=== PATIENT | male | born 1995 | race Two or more races ===

== ENCOUNTER 2019-02-17 10:02 | Emergency (ER) | payer MEDICAID, OTHER ==
[~2019-02-17] VITALS: Ht 177.8 cm; Wt 108.9 kg
[2019-02-17 11:01] VITALS: BP 123/53
[2019-02-17] MEDS ORDERED: KETOROLAC TROMETH 60MG/2ML VIAL IM ONE (11:30)
[2019-02-17] MEDS ORDERED: IBUPROFEN 800 MG TAB PO ONE (11:45)
== END 2019-02-17 12:11 | disposition home or self-care (01) ==
LOC: ER 10:09
DX: S83.91XA Sprain of unspecified site of right knee, initial encounter (principal); F17.210 Nicotine dependence, cigarettes, uncomplicated; X50.9XXA Other and unspecified overexertion or strenuous movements or postures, initial encounter; Y93.89 Activity, other specified; Y99.8 Other external cause status; Y92.89 Other specified places as the place of occurrence of the external cause
CPT/HCPCS: 73562

== ENCOUNTER 2024-08-24 08:21 | Emergency (ER) | payer MEDICAID ==
[~2024-08-24] VITALS: Ht 177.8 cm; Wt 132.2 kg
[2024-08-24 08:30] VITALS: BP 132/96; PULSE 96; RESP 20; O2SAT 98
== END 2024-08-24 10:31 | disposition left against medical advice (07) ==
LOC: ER 08:21
DX: R05.9 Cough, unspecified (principal); Z53.21 Procedure and treatment not carried out due to patient leaving prior to being seen by health care provider

== ENCOUNTER 2025-02-09 06:20 | Emergency (ER) | payer MEDICAID ==
[~2025-02-09] VITALS: Ht 177.8 cm; Wt 101.0 kg
[2025-02-09 07:56] VITALS: BP 133/72; PULSE 66; RESP 18; TEMP 97.7; O2SAT 98
--- NOTE | 2025-02-09 07:56 | ED.PDOC ---
Musculoskeletal HPI Comments This is a 29 year old male presenting with chief complaint of right knee concern/work release. Patient reports that he was seen limping a bit on his right leg at work, being advised by his boss to be seen in the ED for a note to be released back to work. Able to bear weight on the leg Denies trauma to the knee or recent fall Denies skin color changes around the knee Denies masses around the knee Denies popping/locking/giving out of the knee Denies fever chills night sweats nausea vomiting Denies previous surgeries to the knee nor significant injury Chief Complaint: Lower Extremity Time Seen by MD: 07:40 Primary Care Provider: NONE Reviewed Notes: Nurses Notes, Medications, Allergies Allergies: Coded Allergies: NO KNOWN ALLERGIES (Unverified , 02/17/19) Information Source: Patient Mode of Arrival: Ambulatory Location: Right Extremity Location: Knee Timing: Hours Prehospital treatment: None Severity: None Able to Move Extremity: Yes Bear Weight: Fully Pain: None Mechanism: No Injury Circumstances: Work Related DVT Risk Factors: NONE Last Tetanus: Unknown Associated signs and symptoms: None Past Medical History PAST MEDICAL HISTORY: Denies Surgical History: Denies all surgeries Family History Family History: Unknown Social History Smoker: Non-Smoker Alcohol: Denies ETOH Use Drugs: Denies Drug Use Lives In: Home Constitutional: denies: chills, diaphoresis, fatigue, fever, malaise, sweats, weakness, others EENTM: denies: blurred vision, double vision, ear bleeding, ear discharge, ear drainage, ear pain, ear ringing, eye pain, eye redness, hearing loss, mouth pain, mouth swelling, nasal discharge, nose bleeding, nose congestion, nose pain, photophobia, tearing, throat pain, throat swelling, voice changes, others Respiratory: denies: cough, hemoptysis, orthopnea, SOB at rest, shortness of b reath, SOB with excertion, stridor, wheezing, others Cardiovascular: denies: chest pain, dizzy spells, diaphoresis, Dyspnea on exertion, edema, irregular heart beat, left arm pain, lightheadedness, palpitations, PND, syncope, others Gastrointestinal: denies: abdomen distended, abdominal pain, blood streaked bowels, constipated, diarrhea, dysphagia, difficulty swallowing, hematemesis, melena, nausea, poor appetite, poor fluid intake, rectal bleeding, rectal pain, vomiting, others Genitourinary: denies: burning, dysuria, flank pain, frequency, hematuria, incontinence, penile discharge, penile sore, pain, testicle pain, testicle swelling, urgency, others Neurological: denies: dizziness, fainting, headache, left sided numbness, left sided weakness, numbness, paresthesia, pre-existing deficit, right sided numbness, right sided weakness, seizure, speech problems, tingling, tremors, weakness, others Musculoskeletal: denies: back pain, gout, joint pain, joint swelling, muscle pain, muscle stiffness, neck pain, others Integumetry: denies: bruises, change in color, change in hair/nails, dryness, laceration, lesions, lumps, rash, wounds, others Allergic/Immunocompromised: denies: Difficulty Healing, Frequent Infections, Hives, Itching, others Hematologic/Lymphatic: denies: anemia, blood clots, easy bleeding, easy bruising, swollen glands, others Endocrine: denies: excessive hunger, excessive sweating, excessive thirst, excessive urination, flushing, intolerance to cold, intolerance to heat, unexplained weight gain, unexplained weight loss, others Psychiatric: denies: anxiety, bipolar disorder, depression, hopeless, panic disorder, schizophrenia, sleepless, suicidal, others All Other Systems: Reviewed and Negative Physical Exam General Appearance: No Apparent Distress, Normal HEENT: Normal ENT Inspection, Pharynx Normal, TMs Normal Neck: Full Range of Motion, Non-Tender, Normal, Normal Inspection Respiratory: Chest Non-Tender, Lungs Clear, No Accessory Muscle Use, No Respiratory Distress, Normal Breath Sounds Cardiovascular: No Murmur, No Gallop, Regular Rate/Rhythm Breast Exam: Deferred Gastrointestinal: No Organomegaly, Non Tender, No Pulsatile Mass, Normal Bowel Sounds, Soft Genitalia: Deferred Pelvic: Deferred Rectal: Deferred Extremities: No calf tenderness, Normal capillary refill, Normal inspection, Normal range of motion, Non-tender, No pedal edema Musculoskeletal : Location: Right Extremity Location: Knee Apperance: Normal, Other (No gross abnormality to the right knee on inspection. No ecchymosis, soft tissue swelling, or open wounds. No tenderness over the anterior patella. No signs of instability to the knee. valgus varus stress test is negative. Anterior and posterior drawer test negative. No crepitus with flexion and extension of knee. 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 Was a procedure done?: No Differential Diagnosis EXT Differential Diagnosis: Sprain, Arthritis, Other X-Ray, Labs, Meds, VS Vital Signs Date Time Temp Pulse Resp B/P (MAP) Pulse Ox O2 Delivery O2 Flow Rate FiO2 02/09/25 07:56 97.7 66 18 133/72 (92) 98 97.7 02/09/25 07:56 66 02/09/25 07:06 97.9 70 18 154/71 (98) 96 97.9 X-Ray, Labs, Meds, VS Comment This is a 29 year old male presenting with chief complaint of right knee concern/work release. Patient arrives alert and oriented, ABC's intact, afebrile, vital signs stable, saturating well in room air No calf or hip tenderness to suggest referred pain. Intact patellar mechanism and no instability on exam. Regarding the knee concern there is no evidence of referred pain (no hip or leg tenderness on exam). The joint itself is non- irritable with range of motion exam and there is no overlying redness, warmth to suggest infection. The patellar and quadriceps tendon are non-tender and extension is intact. There is no instability with exam. Diagnostic imaging ordered by me and results interpreted by radiology : None Additional MDM Review of External, Non-ED records: External records reviewed. History obtained from the patient at bedside Chronic conditions affecting care: None Social determinants of health affecting care: None Consideration of admission (observation or admission): I considered escalation of care to admission for this patient, however given the reassuring workup, the patient is safe for outpatient management. Discussion with the Radiology: No Tests considered but not performed: None Prescription medication considered but not given: None Time of 1ST Reevaluation: 07:50 Reevaluation 1ST: Unchanged Patient Education/Counseling: Diagnosis, Treatment Family Education/Counseling: No Family Present Departure 1 Departure Time of Disposition: 08:00 Impression: Primary Impression: Pain of right patella Disposition: 01 HOME / SELF CARE / HOMELESS Condition: Stable Critical Care Note Critical Care Time?: No Stability Stability form required: No Heart Score Heart Score: Heart Score Response (Comments) Value History N/A 0 EKG N/A 0 Age N/A 0 Risk Factors N/A 0 Troponin N/A 0 Total 0 I personally scribed for NELLIE MEDEL NP ([email or web address]) on 02/09/25 at 07:56. Electronically submitted by Rashi Gupta ([email or web address]). NELLIE MEDEL NP February 09, 2025 07:56
== END 2025-02-09 08:07 | disposition home or self-care (01) ==
LOC: ER 06:20
DX: M25.561 Pain in right knee (principal)